=== PATIENT | male | born 1985 | race Caucasian/White ===

== ENCOUNTER 2018-03-01 22:53 | Emergency (ER) | payer MEDICAID ==
[~2018-03-01] VITALS: Ht 182.9 cm; Wt 100.0 kg
[~2018-03-01 22:53] MED LIST: AMPH12.52 PO; FLUO20CA PO; FLUO90CA PO; GABA-530 PO; GUAI120015 PO; ONDA4TAB12 PO; OXYC-145 PO; VALA10002 PO
[2018-03-01 22:55] VITALS: BP 151/97
[2018-03-01] MEDS ORDERED: IBUP-1985 PO (23:43)
[2018-03-01] MEDS ORDERED: ibuprofen tablet 400 MG TABLET PO ONE (23:45)
== END 2018-03-01 23:55 ==
LOC: ER 22:53
DX: R07.81 Pleurodynia (principal); M79.642 Pain in left hand; Z79.899 Other long term (current) drug therapy; Z56.0 Unemployment, unspecified; V23.9XXA Unspecified motorcycle rider injured in collision with car, pick-up truck or van in traffic accident, initial encounter; Y93.89 Activity, other specified; Y92.413 State road as the place of occurrence of the external cause; Y99.8 Other external cause status
CPT/HCPCS: 29125; 71101; 73130; 99283

== ENCOUNTER 2020-07-22 19:49 | Emergency (ER) | payer MEDICAID ==
[~2020-07-22] VITALS: Ht 182.9 cm; Wt 140.4 kg
[~2020-07-22 19:49] MED LIST changes: +IBUP-1985 PO
[2020-07-22 21:13] LABS: HEMOGLOBIN 15.2 g/dl (14.0-17.9); MEAN CORPUSCULAR VOLUME 96.3 FL (78-98)
[2020-07-22 21:15] LABS: BASOPHILS # (AUTO) 0.1 X10'3 (0-0.2); BASOPHILS % (AUTO) 0.9 % (0-1); EOSINOPHILS # (AUTO) 0.3 X10'3 (0-0.9); EOSINOPHILS % (AUTO) 2.3 % (0-6); HEMATOCRIT 45.2 % (42.0-52.0); LYMPHOCYTES % (AUTO) 26.9 % (21-51); MEAN CORPUSCULAR HEMOGLOBIN 32.3 PG (27.0-31.0); MEAN CORPUSCULAR HGB CONC 33.6 g/dL (33.0-36.5); MEAN PLATELET VOLUME 8.5 FL (7.4-10.4); MONOCYTES # (AUTO) 1.3 X10'3 (0-0.9); MONOCYTES % (AUTO) 12.2 % (2-12); NEUTROPHILS # (AUTO) 6.4 X10'3 (1.8-7.7); NEUTROPHILS % (AUTO) 57.7 % (42-75); PLATELET COUNT 234 X10'3 (140-440); RED BLOOD COUNT 4.69 X10'6 (4.70-6.10); RED CELL DISTRIBUTION WIDTH 12.8 % (11.5-14.5); WHITE BLOOD COUNT 11.1 X10'3 (4.5-11.0)
[2020-07-22 21:35] LABS: ALANINE AMINOTRANSFERASE 158 U/L (12-78); ALBUMIN 3.7 G/DL (3.4-5.0); ALBUMIN/GLOBULIN RATIO 0.9 (1.1-1.5); ALKALINE PHOSPHATASE 94 IU/L (46-116); ANION GAP 9 (8-16); ASPARTATE AMINO TRANSFERASE 62 U/L (10-37); BILIRUBIN,TOTAL 0.4 MG/DL (0.1-1.0); BLOOD UREA NITROGEN 14 MG/DL (7-18); BUN/CREATININE RATIO 12.3 (5.4-32.0); CALCIUM 9.1 MG/DL (8.5-10.1); CHLORIDE 103 MMOL/L (99-107); CREATININE 1.14 MG/DL (0.60-1.10); GLUCOSE 124 MG/DL (70-104); LIPASE 111 U/L (73-393); POTASSIUM 3.6 MMOL/L (3.5-5.1); SODIUM 141 MMOL/L (135-145); TOTAL CARBON DIOXIDE 28.6 MMOL/L (24-32); TOTAL PROTEIN 7.9 G/DL (6.4-8.2); eGFR 74 ML/MIN
[2020-07-22 21:56] LABS: CLARITY,URINE CLEAR (Clear); COLOR,URINE YELLOW (Yellow); GLUCOSE, URINE NEGATIVE (Neg); KETONES,URINE NEGATIVE (Neg); LEUKOCYTE ESTERASE ,URINE NEGATIVE (Neg); NITRITES, URINE NEGATIVE (Neg); OCCULT BLOOD,URINE NEGATIVE (Neg); PH,URINE 6.5 (4.8-8.0); PROTEIN,URINE NEGATIVE (Neg); UROBILINOGEN,URINE 0.2 E.U/dL (0.2-1.0)
[2020-07-22 21:58] LABS: UA COLLECTION TYPE CLN CATCH MIDSTREAM
[2020-07-22] MEDS ORDERED: ketorolac tromethamine 15mg/ml inj. IM ONE (22:45)
[2020-07-22 22:53] VITALS: BP 153/108
== END 2020-07-22 22:55 | disposition home or self-care (01) ==
LOC: ER 19:50
DX: R10.31 Right lower quadrant pain (principal); R19.7 Diarrhea, unspecified; I10 Essential (primary) hypertension; F32.9 Major depressive disorder, single episode, unspecified; Z72.89 Other problems related to lifestyle; Z56.0 Unemployment, unspecified; Z79.899 Other long term (current) drug therapy; Z79.2 Long term (current) use of antibiotics
CPT/HCPCS: 36415; 74176; 80053; 81003; 83690; 85025; 96372; 99284; J1885

== ENCOUNTER 2021-01-31 22:56 | Emergency (ER) | payer MEDICAID ==
[~2021-01-31] VITALS: Ht 182.9 cm; Wt 152.3 kg
[2021-02-01] MEDS ORDERED: iohexol 350MG/ML 100ml bottle IV ONE (01:14)
[2021-02-01 01:16] LABS: D-DIMER 0.37 MG/L FEU (0-0.50); PARTIAL THROMBOPLASTIN TIME 28 SECONDS (22-32)
[2021-02-01 01:17] LABS: ALANINE AMINOTRANSFERASE 201 U/L (12-78); ALBUMIN 3.5 G/DL (3.4-5.0); ALBUMIN/GLOBULIN RATIO 0.7 (1.1-1.5); ALKALINE PHOSPHATASE 68 IU/L (46-116); ANION GAP 11 (8-16); ASPARTATE AMINO TRANSFERASE 122 U/L (10-37); BILIRUBIN,TOTAL 0.4 MG/DL (0.1-1.0); BLOOD UREA NITROGEN 10 MG/DL (7-18); BUN/CREATININE RATIO 9.8 (5.4-32.0); C-REACTIVE PROTEIN 0.84 MG/DL (0.0-0.5); CALCIUM 8.5 MG/DL (8.5-10.1); CHLORIDE 100 MMOL/L (99-107); CREATININE 1.02 MG/DL (0.60-1.10); GLUCOSE 114 MG/DL (70-104); MAGNESIUM 1.9 MG/DL (1.5-2.4); POTASSIUM 3.8 MMOL/L (3.5-5.1); SODIUM 135 MMOL/L (135-145); TOTAL CARBON DIOXIDE 24.1 MMOL/L (24-32); TOTAL PROTEIN 8.5 G/DL (6.4-8.2); eGFR 84 ML/MIN
[2021-02-01 01:30] LABS: BASOPHILS % (AUTO) 0.5 % (0-1); EOSINOPHILS % (AUTO) 0.2 % (0-6); HEMATOCRIT 46.7 % (42.0-52.0); HEMOGLOBIN 16.6 g/dl (14.0-17.9); LYMPHOCYTES # (AUTO) 1.7 X10'3 (1.1-4.8); LYMPHOCYTES % (AUTO) 26.2 % (21-51); MEAN CORPUSCULAR HEMOGLOBIN 33.9 PG (27.0-31.0); MEAN CORPUSCULAR HGB CONC 35.4 g/dL (33.0-36.5); MEAN CORPUSCULAR VOLUME 95.6 FL (78-98); MEAN PLATELET VOLUME 9.9 FL (7.4-10.4); MONOCYTES # (AUTO) 0.9 X10'3 (0-0.9); MONOCYTES % (AUTO) 13.6 % (2-12); NEUTROPHILS # (AUTO) 3.8 X10'3 (1.8-7.7); NEUTROPHILS % (AUTO) 59.5 % (42-75); PLATELET COUNT 121 X10'3 (140-440); RED BLOOD COUNT 4.89 X10'6 (4.70-6.10); RED CELL DISTRIBUTION WIDTH 13.2 % (11.5-14.5); WHITE BLOOD COUNT 6.3 X10'3 (4.5-11.0)
[2021-02-01] MEDS ORDERED: CefTRIAXone/D5W-Rocephin 1gm 50 ML IV ONE (01:50)
[2021-02-01] MEDS ORDERED: azithromycin/NS 500mg/250ml 250 ML IV ONE (01:50)
[2021-02-01] MEDS ORDERED: CASIRIVIMAB/IMDEVIMAB inject. 10 ML in normal saline 100ml IV soln 100 ML IV ONE (02:05)
[2021-02-01] MEDS ORDERED: BAMLANIVIMAB IV ONE (02:15)
[2021-02-01] MEDS ORDERED: famotidine/PF 10 mg/ml inj IV PRN (02:15)
[2021-02-01] MEDS ORDERED: ETESEVIMAB IV ONE (02:15)
[2021-02-01] MEDS ORDERED: epiNEPHrine 1 mg/ml inj IM PRN (02:15)
[2021-02-01] MEDS ORDERED: diphenhydrAMINE 50 mg/ml inj IV PRN (02:15)
[2021-02-01] MEDS ORDERED: albuterol 2.5 MG/3 ML nebule NEB PRN (02:15)
[2021-02-01] MEDS ORDERED: hydrocortisone sod succ/PF 100mg/2ml inj. IV PRN (02:15)
[2021-02-01] MEDS ORDERED: acetaminophen 325mg tablet PO PRN (02:15)
[2021-02-01] MEDS ORDERED: NS IV ONE (02:15)
[2021-02-01] MEDS ORDERED: CHOL20002 PO (03:30)
[2021-02-01] MEDS ORDERED: LISI40TA13 PO (03:30)
[2021-02-01] MEDS ORDERED: AZIT-83 PO (05:07)
[2021-02-01 05:17] VITALS: BP 151/98
== END 2021-02-01 05:19 | disposition home or self-care (01) ==
LOC: ER 22:56
DX: U07.1 COVID-19 (principal); J12.82 Pneumonia due to coronavirus disease 2019; R50.9 Fever, unspecified; R05.9 Cough, unspecified; R06.02 Shortness of breath; R07.89 Other chest pain; I10 Essential (primary) hypertension; F32.9 Major depressive disorder, single episode, unspecified; Z72.89 Other problems related to lifestyle; Z56.0 Unemployment, unspecified; Z79.2 Long term (current) use of antibiotics; Z79.899 Other long term (current) drug therapy
CPT/HCPCS: 36415; 71045; 71275; 80053; 83605; 83735; 84145; 85025; 85379; 85610; 85730; 86140; 87040; 87635; 93005; 96374; 96375; 99291; C9803; J0456; J0696; M0245; Q0245; Q9967; Q0239

== ENCOUNTER 2021-07-12 15:06 | Emergency (ER) | payer MEDICAID ==
[~2021-07-12] VITALS: Ht 185.4 cm; Wt 148.8 kg
[~2021-07-12 15:06] MED LIST changes: -AMPH12.52 PO; +CHOL20002 PO; -FLUO20CA PO; -FLUO90CA PO; -GABA-530 PO; -GUAI120015 PO; -IBUP-1985 PO; +LISI40TA13 PO; -ONDA4TAB12 PO; -OXYC-145 PO; -VALA10002 PO
[2021-07-12] MEDS ORDERED: ipratropium/albuterol 3ml nebule NEB ONE (15:30)
[2021-07-12] MEDS ORDERED: PRED20TA PO (16:02)
[2021-07-12] MEDS ORDERED: ALBU6.7H9 INH (16:02)
[2021-07-12 16:13] VITALS: BP 143/90
== END 2021-07-12 16:15 | disposition home or self-care (01) ==
LOC: ER 15:07
DX: J06.9 Acute upper respiratory infection, unspecified (principal); R05.9 Cough, unspecified; I10 Essential (primary) hypertension; F32.A Depression, unspecified; Z72.89 Other problems related to lifestyle; Z56.0 Unemployment, unspecified; Z79.899 Other long term (current) drug therapy
CPT/HCPCS: 71046; 93005; 94640; 94760; 99283

== ENCOUNTER 2022-05-09 09:09 | Emergency (ER) | payer MEDICAID ==
[~2022-05-09] VITALS: Ht 188 cm; Wt 136.0 kg
[~2022-05-09 09:09] MED LIST changes: +ALBU6.7H14 INH
[2022-05-09 09:27] VITALS: BP 146/98
[2022-05-09] MEDS ORDERED: ERYT1OIN6 EACHEYE (10:55)
== END 2022-05-09 11:04 | disposition home or self-care (01) ==
LOC: ER 09:10
DX: H10.9 Unspecified conjunctivitis (principal)
CPT/HCPCS: 99283

== ENCOUNTER 2023-01-18 23:16 | Emergency (ER) | payer MEDICAID ==
[~2023-01-18] VITALS: Ht 185.4 cm; Wt 155.4 kg
[2023-01-19] MEDS ORDERED: HYDR-3965 PO (02:38)
[2023-01-19] MEDS ORDERED: ketorolac trometh inj. 60 MG/2 ML VIAL IM ONE (02:40)
[2023-01-19] MEDS ORDERED: acetaminophen 325mg tablet PO ONE (02:40)
[2023-01-19] MEDS ORDERED: HYDROcodone/acetaminophen 5mg/325mg tablet PO ONE (02:40)
[2023-01-19 03:02] VITALS: BP 155/87; PULSE 100; RESP 16; TEMP 97.5; O2SAT 97
== END 2023-01-19 03:03 | disposition home or self-care (01) ==
LOC: ER 23:16
DX: M54.12 Radiculopathy, cervical region (principal); M79.631 Pain in right forearm; Z72.89 Other problems related to lifestyle; Z56.0 Unemployment, unspecified; Z79.899 Other long term (current) drug therapy
CPT/HCPCS: 73030; 96372; 99283; J1885

== ENCOUNTER 2024-11-12 15:12 | Emergency (ER) | payer MEDICAID ==
[~2024-11-12] VITALS: Ht 185.4 cm; Wt 135.0 kg
[~2024-11-12 15:12] MED LIST changes: -LISI40TA13 PO; +LISI40TA20 PO
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
--- NOTE | 2024-11-12 15:44 | ELECTROCARDIOGRAPH REPORT ---
[facility] Test Date: 2024-11-12 Test Time: 15:27:03 Pat Name: BHASKAR MILLARD Department: EMERGENCY ROOM Room: Gender: M Decontaminator: : 1985 Requested By: MILLI AGUIRRE Order Number: [id number] Reading MD: Measurements Intervals [place] Rate: 140 P: 37 CO: 128 QRS: 73 QRSD: 93 T: 31 QT: 355 QTc: 542 Interpretive Statements Sinus tachycardia Atrial premature complexes Consider anterior infarct Prolonged QT interval Baseline wander in lead(s) V4,V5,V6 Please click the below link to view image of tracing.
[2024-11-12 16:02] LABS: MEAN PLATELET VOLUME 8.6 FL (7.4-10.4); RED CELL DISTRIBUTION WIDTH 12.8 % (11.5-14.5)
[2024-11-12 16:24] LABS: CREATININE 0.91 MG/DL (0.60-1.10); PRO BRAIN NATRIURETIC PEPTIDE < 30 PG/ML (0-125); TOTAL CARBON DIOXIDE 18.4 MMOL/L (24-32); eCRCL 124 ML/MIN; eGFR > 90 ML/MIN
--- NOTE | 2024-11-12 16:25 | RADIOLOGY REPORT ---
DI CHEST,SINGLE VIEW, HISTORY: CP COMPARISON: CHEST,TWO VIEWS on DOS: 07/12/21, CTA CHEST on DOS: 02/01/21, CHEST,SINGLE VIEW on DOS: CHEST,TWO VIEWS on DOS: 07/12/21, CTA CHEST on DOS: 02/01/21, CHEST,SINGLE VIEW on DOS: 02/01/21 TECHNICAL DATA: 1 view of the chest was obtained. FINDINGS: Lines and tubes: None Cardiomediastinal silhouette: normal Pulmonary vasculature: normal Lung expansion: normal Lung airspace: normal Lung interstitium: normal Pleura: normal Pneumothorax: no Bones: Unremarkable Other: no IMPRESSION: No acute intrathoracic abnormality.
--- NOTE | 2024-11-12 18:19 | RADIOLOGY REPORT ---
CT CTA CHEST PE W/ IV CONTRAST INDICATION: CP EXAM DATE: 11/12/2024 05:36 PM COMPARISON: CHEST,TWO VIEWS on DOS: 07/12/21, CTA CHEST on DOS: 02/01/21, CHEST,SINGLE VIEW on DOS: RADIATION DOSE: CTDIvol: 24 mGy, DLP: 986 mGy*cm PROCEDURE: Helical CT angiographic images were obtained of the chest with intravenous contrast. Sagi ttal and coronal reconstructions as well as MIPS are provided. Maximum intensity projections performe d (MIPs) were performed for CTA. ADDITIONAL IMAGES / REFORMATS: None All CT scans at this medical facility are performed using dose modulation techniques as appropriate t o a performed exam including the following: Automated exposure control was utilized; adjustment of th e MA and/or KV according to patient size; and use of iterative reconstruction technique. FINDINGS: Bones: Normal. Visualized Abdomen: Normal. Chest Wall: Normal. Soft tissues: Normal. Mediastinum: Normal. Heart: Normal. Vessels: No filling defects in the visualized pulmonary arteries including the segmental and subsegme ntal pulmonary arteries. Lymph Nodes: Normal. Pleura: Normal. Airways: Normal. Lung: Normal. Other: None IMPRESSION: No pulmonary embolism in the visualized pulmonary arteries including the segmental and subsegmental p ulmonary arteries.
[2024-11-12 19:08] VITALS: BP 128/74; PULSE 80; RESP 15; TEMP 98.5; O2SAT 98
== END 2024-11-12 19:13 | disposition home or self-care (01) ==
LOC: ER 15:12
DX: R07.89 Other chest pain (principal); R53.1 Weakness; R06.02 Shortness of breath; E11.9 Type 2 diabetes mellitus without complications; E78.5 Hyperlipidemia, unspecified; I10 Essential (primary) hypertension; F32.A Depression, unspecified
CPT/HCPCS: 36415; 71045; 71275; 80048; 83880; 84484; 85025; 85379; 93005; 99285; Q9967

== ENCOUNTER 2025-01-25 15:13 | Emergency (ER) | payer MEDICAID ==
[~2025-01-25] VITALS: Ht 190.5 cm; Wt 131.4 kg
[2025-01-25 15:23] VITALS: TEMP 97.9
--- NOTE | 2025-01-25 16:32 | Physician Documentation ---
History of Present Illness ~ Chief Complaint: Headache Stated Complaint: HEADACHE Time Seen by MD: 17:26 Primary Medical Doctor: [facility] HPI This is a 39-year-old male who presents with right-sided headache radiating into right neck and shoulder, patient reports being seen at its another emergency department two days prior though the medications he was provided did not achieve relief. Patient reports that he has experienced similar patterns of the headaches however never this intense and in the past symptoms have resolved with [id number] medications. Medication Reconciliation Allergies: Coded Allergies: No Known Allergies (Unverified , 01/25/25) Scheduled Atorvastatin Calcium* (Lipitor*), 1 TAB PO DAILY, (Reported) Ibuprofen (Ibuprofen), 1 TAB PO Q8H Lidocaine (Lidoderm), 1 PATCH TOP DAILY Lisinopril* (Lisinopril*), 1 TAB PO DAILY, (Reported) Scheduled PRN Prochlorperazine Maleate (Compazine), 1 TAB PO BID PRN for headache Miscellaneous Medications Tirzepatide (Mounjaro), (Reported) Discontinued Medications Albuterol Sulfate (Proventil Hfa), 2 PUFFS INH Q4H Discontinued Reason: patient no longer taking Cholecalciferol (Vitamin D3) (Vitamin D3), 1 CAP PO DAILY, (Reported) Discontinued Reason: patient no longer taking Past Medical History Past Medical History: *CARDIOVASCULAR*, Hypertension, Diabetes, *PSYCH*, Depression Past Surgical History: no surgical history Alcohol Use: Occasionally Drug Use: none Lives with: Other Lives In: Home Occupation: unemployed Review of Systems ROS As stated above in the HPI, otherwise all systems are reviewed and negative. Physical Exam Vital Signs: Temperature: 97.9, Source: Temporal, Heart Rate: 104, Respiratory Rate: 18, BP: 150/97, Pulse Oximetry: 99, Weight: 131.400 Physical Exam VITALS: Reviewed and as above. GENERAL: Alert, nontoxic appearing, no apparent distress. HEENT: PERRLA, EOMI. No meningeal signs RESPIRATORY: No increased work of breathing, no respiratory distress, speaking in full clear sentences MUSCULOSKELETAL: Tenderness to right posterior shoulder and right posterior neck NEURO: No extremity weakness, no focal sensory deficits Progress Results/Orders Results/Orders Completed Orders - TIMMY CONDON SCOW HAND Ketorolac Trometh 15mg/Ml Vial (Toradol (01/25/25 16:10) Normal Saline 1000ml (0.9% Sodium Chlori (01/25/25 17:45) Diphenhydramine Inj (Benadryl Inj.) (01/25/25 17:45) Prochlorperazine Inj (Compazine Inj) (01/25/25 17:45) Dexamethasone Inj (Decadron 10mg/Ml Inj) (01/25/25 17:44) Lidocaine 5% Patch (Lidoderm 5% Patch) (01/25/25 19:00) Medications Received in ER Medications (Trade) Dose Ordered Sig/Nargis Route PRN Reason Start Time Stop Time Status Last Admin Dose Admin (Toradol injection) 15 mg ONCE ONCE IM 01/25/25 16:10 01/25/25 16:11 DC 01/25/25 17:05 15 MG (0.9% sodium chloride (NS) 1000ml IV soln) 1,000 ml ONCE ONCE IVB 01/25/25 17:45 01/25/25 17:49 DC 01/25/25 18:07 1,000 ML (Benadryl inj.) 25 mg ONCE ONCE IM 01/25/25 17:45 01/25/25 17:49 DC 01/25/25 18:07 25 MG (Compazine inj) 10 mg ONCE ONCE IM 01/25/25 17:45 01/25/25 17:49 DC 01/25/25 18:08 10 MG (Decadron 10mg/ ml inj) 10 mg ONCE STAT PO 01/25/25 17:44 01/25/25 17:49 DC 01/25/25 18:07 10 MG (Lidoderm 5% Patch) 1 patch ONCE ONCE TP 01/25/25 19:00 01/25/25 19:01 DC 01/25/25 19:15 1 PATCH Vital Signs 01/25/25 01/25/25 01/25/25 01/25/25 15:23 17:31 17:36 18:26 Temp 97.9 Pulse 104 74 Resp 18 16 16 16 B/P (MAP) 150/97 146/86 (106) Pulse Ox 99 97 O2 Flow Rate 0 01/25/25 01/25/25 01/25/25 19:00 19:15 19:42 Pulse 89 80 Resp 16 16 16 B/P (MAP) 127/81 (96) 125/84 Pulse Ox 100 100 O2 Flow Rate 0 Medical Decision Making Additional information obtaine: N/A Findings MSE performed in triage and patient returned to ED lobby by nursing staff to await available ED room This 39 year old male presented with right-sided headache radiating to right shoulder and neck present intermittently for the past five days patient reports previous headaches of similar pattern though this headache is more severe. Patient reports recent life stressors and pain and spasms in right shoulder previously. It was reassuring that patient reports pattern of headache is not new and physical exam benign without focal neuro deficits. Patient medicated for pain reporting decreased symptoms. Patient is otherwise well-appearing and appropriate for outpatient management, given patient's report of muscle spasms in right posterior shoulder and tenderness to right shoulder he will be additionally discharged with muscle relaxer for trapezius muscle spasm. Patient discharged with return to care precautions, follow up instructions, and home care instructions which he verbalized understanding of. Differential Dx:Considerations: Include: KEYES-Cluster, KEYES-Migraine, KEYES- Hypertensive, KEYES-Muscular contraction, Close head injuyr, CVA, Fever induced, Mass lesion, Meningitis, Sinusitis Departure Time of Disposition: 19:34 Disposition: 01 HOME / SELF CARE / HOMELESS Impression: Primary Impression: Headache Qualified Codes: R51.9 - Headache, unspecified Condition: Improved Discharge Instructions: Headache Additional Instructions: Please use the prescribed muscle relaxer and Lidoderm patches for your muscle spasm in your shoulder, may use the high-dose ibuprofen should your headache symptoms return. Please follow up with your primary care provider in the next few days. Please return to the emergency department for any new or worsening concerning symptoms. Referrals: NO PRIMARY CARE PROVIDER (PCP) Prescriptions Lidocaine (Lidoderm) 5 % Adh..patch 1 PATCH TOP DAILY for 10 Days, #10 PATCH 0 Refills may wear up to 12 hours Prov: TIMMY CONDON 01/25/25 Ibuprofen (Ibuprofen) 800 Mg Tablet 1 TAB PO Q8H for pain for 10 Days, #30 TAB 0 Refills Prov: TIMMY CONDON 01/25/25 Prochlorperazine Maleate (Compazine) 10 Mg Tablet 1 TAB PO BID PRN for headache for 6 Days, #12 TAB Prov: TIMMY CONDON 01/25/25 Education Educated: Patient Educated regarding: diagnosis, treatment, prognosis, need for follow up Signature Scribe Signature: No scribe Attestation: The note accurately reflects work and decisions made by me.SASHA Renee 01/25/25 21:07 TIMMY CONDON Jan 25, 2025 16:32
[2025-01-25] MEDS: ketorolac trometh 15mg/ml vial 15 MG/ML ML IM ONE (17:05)
[2025-01-25] MEDS ORDERED: ATOR20TA PO (17:34)
[2025-01-25] MEDS ORDERED: TIRZ5PEN (17:34)
[2025-01-25] MEDS: dexamethasone sod phosphate 10mg/ml inj PO STA (18:07)
[2025-01-25] MEDS: normal saline 1000ML IV soln IVB ONE (18:07)
[2025-01-25] MEDS ORDERED: LIDO-52 TOP (19:34)
[2025-01-25] MEDS ORDERED: IBUP-1986 PO (19:34)
[2025-01-25] MEDS ORDERED: PROC-8 PO (19:34)
[2025-01-25 19:42] VITALS: BP 125/84; PULSE 80; RESP 16; O2SAT 100
== END 2025-01-25 19:43 | disposition home or self-care (01) ==
LOC: ER 15:14
DX: R51.9 Headache, unspecified (principal); E11.9 Type 2 diabetes mellitus without complications; I10 Essential (primary) hypertension; F32.A Depression, unspecified; Z56.0 Unemployment, unspecified; Z72.89 Other problems related to lifestyle; Z79.899 Other long term (current) drug therapy
CPT/HCPCS: 96360; 96372; 99284; J0780; J1100; J1200; J1885; J7030

== ENCOUNTER 2025-02-05 15:55 | Emergency (ER) | payer MEDICAID ==
[~2025-02-05] VITALS: Ht 185.4 cm; Wt 129.7 kg
[~2025-02-05 15:55] MED LIST changes: -ALBU6.7H14 INH; +ATOR20TA PO; -CHOL20002 PO; +IBUP-1986 PO; +LIDO-52 TOP; +PROC-8 PO; +TIRZ5PEN
[2025-02-05 16:29] LABS: LEUKOCYTE ESTERASE ,URINE NEGATIVE (Neg); NITRITES, URINE NEGATIVE (Neg); OCCULT BLOOD,URINE NEGATIVE (Neg)
[2025-02-05 16:32] LABS: UA COLLECTION TYPE VOIDED
[2025-02-05 16:35] LABS: MEAN PLATELET VOLUME 8.7 FL (7.4-10.4); RED CELL DISTRIBUTION WIDTH 12.7 % (11.5-14.5)
[2025-02-05] MEDS ORDERED: FLUO-1 PO (16:38)
[2025-02-05] MEDS ORDERED: HYDR-3686 PO (16:40)
[2025-02-05 16:50] LABS: URINE AMPHETAMINE SCREEN NEGATIVE (Neg); URINE BARBITUATE SCREEN NEGATIVE (Neg); URINE BENZODIAZEPINES SCREEN NEGATIVE (Neg); URINE CANNABINOID SCREEN POSITIVE (Neg); URINE COCAINE SCREEN NEGATIVE (Neg); URINE METHADONE SCREEN NEGATIVE (Neg); URINE OPIATE SCREEN NEGATIVE (Neg); URINE PHENCYCLIDINE SCREEN NEGATIVE (Neg)
[2025-02-05 17:07] LABS: CREATININE 0.96 MG/DL (0.60-1.10); ETHANOL < 10 MG/DL (<10); TOTAL CARBON DIOXIDE 22.6 MMOL/L (24-32); eCRCL 118 ML/MIN; eGFR 88 ML/MIN
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
[2025-02-06 07:14] VITALS: PULSE 65
[2025-02-06 09:34] LABS: CREATININE 0.81 MG/DL (0.60-1.10); TOTAL CARBON DIOXIDE 28.8 MMOL/L (24-32); eCRCL 140 ML/MIN; eGFR > 90 ML/MIN
[2025-02-06 14:19] VITALS: BP 132/80; RESP 16; TEMP 98.6; O2SAT 98
== END 2025-02-06 14:27 ==
LOC: ER 15:56
DX: F32.A Depression, unspecified (principal); F41.9 Anxiety disorder, unspecified; G47.00 Insomnia, unspecified; Z72.820 Sleep deprivation; D72.829 Elevated white blood cell count, unspecified; I10 Essential (primary) hypertension; E11.9 Type 2 diabetes mellitus without complications; Z79.899 Other long term (current) drug therapy; Z56.0 Unemployment, unspecified; Z72.89 Other problems related to lifestyle; Z20.822 Contact with and (suspected) exposure to COVID-19
CPT/HCPCS: 36415; 80048; 80053; 80305; 80320; 81003; 84443; 85025; 87811; 99285; Q0177